=== PATIENT | male | born 1960 | race Caucasian/White ===

== ENCOUNTER 2016-05-24 06:46 | Emergency (ER) | payer BC ==
[~2016-05-24] VITALS: Ht 175.3 cm; Wt 97.1 kg
[~2016-05-24 06:46] MED LIST: AMLO10TA4 PO; ASPI325T4 PO; CARV12.5 PO; CEPH250C PO; CLIN-44 PO; HYDR-971 PO; NIAC10002 PO; PANT40TA5 PO; QUIN40TA7 PO; SULF1TAB24 PO
[2016-05-24 07:09] VITALS: BP 136/86
[2016-05-24] MEDS ORDERED: SIMV20TA PO (07:16)
[2016-05-24] MEDS ORDERED: DOXY100T PO (07:38)
--- NOTE | 2016-05-24 07:38 | PHYS DOC ---
Past Medical History Past Medical History: CAD, High Cholesterol, Hypertension, [place], MRSA Past Surgical History: Angioplasty, Other Additional Past Surgical Histo: cardiac stents; aortagram Additional Information: quit smoking 9 years ago Alcohol Use: Rarely Drug Use: None Adult General Chief Complaint Chief Complaint: WOUND CHECK HPI HPI Patient is a 55 year old male who presents with left thigh abscess for 1 week. He states that it started out as "a pimple" but has grown larger. He has had purulent drainage from the wound. He denies fevers. He had a similar wound in February of last year. He was initially prescribed Bactrim. The wound continued to worsen, so he was then prescribed clindamycin. The clindamycin caused nausea and vomiting that resulted in an esophageal tear. He was admitted to the hospital and eventually discharged on Keflex with good resolution of the wound. He has seen Dr. Swanson in the wound care center for his previous abscess. His PCP is Dr. Pérez. Review of Systems Review of Systems Constitutional: Denies fever or chills. [] Musculoskeletal: Denies back pain or joint pain. Reports left thigh pain. Integument: Denies rash or skin lesions. Reports left thigh abscess. Neurologic: Denies focal weakness or sensory changes. [] Allergies Allergies Allergies Coded Allergies Type Severity Reaction Last Updated Verified No Known Drug Allergies 02/11/16 No Physical Exam Physical Exam Constitutional: Well developed, well nourished, no acute distress, non-toxic appearance. [] HENT: Normocephalic, atraumatic, oropharynx moist. [] Eyes: PERRLA, EOMI, conjunctiva normal, no discharge. [] Skin: Warm, dry, no rash. There is an indurated 2 cm abscess with spontaneous purulent drainage to the left anterior mid thigh with minimal surrounding erythema. Extremities: Left thigh tenderness associated with abscess, ROM intact, no edema. Distal pulses equal bilaterally. [] Neurologic: Alert and oriented X 3, normal motor function, normal sensory function, no focal deficits noted. [] Psychologic: Affect normal, judgement normal, mood normal. [] Current Patient Data Vital Signs Vital Signs Date Time Temp Pulse Resp B/P Pulse Ox O2 Delivery O2 Flow Rate FiO2 05/24/16 07:09 98.1 92 20 96 Room Air 98.1 EKG EKG [] Radiology/Procedures Radiology/Procedures [] Course & Med Decision Making Course & Med Decision Making Pertinent Labs and Imaging studies reviewed. (See chart for details) Patient presents with left thigh abscess for one week. On exam, the abscess is indurated with spontaneous purulent drainage and minimal surrounding erythema. He is instructed to apply warm compresses at home to encourage drainage. He is discharged home with prescription for doxycycline. He declines offer for pain medication prescription. He is instructed to follow-up in 2-3 days for wound recheck, sooner if worsening. Return precautions were discussed. He verbalizes understanding and agrees with plan. Dragon Disclaimer Dragon Disclaimer This electronic medical record was generated, in whole or in part, using a voice recognition dictation system. Departure Departure Impression: Primary Impression: Abscess Disposition: 01 HOME, SELF-CARE Condition: STABLE Referrals: Johnson PÉREZ MD (PCP) Patient Instructions: Abscess, [id number] Additional Instructions: You were seen for an abscess. Please complete all of the prescribed antibiotics, even if your wound is improving. Please follow up with your doctor in 2-3 days for wound recheck. Follow up sooner if it is getting worse. Return to the emergency department if you have any new or concerning symptoms. Scripts Doxycycline Hyclate 100 Mg Tablet1 Tab PO BID #20 TAB Prov:ELOINA MCCLENDON 05/24/16 ELOINA MCCLENDON May 24, 2016 07:38
== END 2016-05-24 07:41 | disposition home or self-care (01) ==
LOC: ER 06:46
DX: L02.416 Cutaneous abscess of left lower limb (principal); I25.10 Atherosclerotic heart disease of native coronary artery without angina pectoris; Z95.5 Presence of coronary angioplasty implant and graft; I25.2 Old myocardial infarction; I10 Essential (primary) hypertension; E78.00 Pure hypercholesterolemia, unspecified; Z86.14 Personal history of Methicillin resistant Staphylococcus aureus infection; Z87.891 Personal history of nicotine dependence
CPT/HCPCS: 99283